=== PATIENT | male | born 1995 ===

== ENCOUNTER 2018-01-29 17:32 | Emergency (ER) | payer SELFPAY ==
[~2018-01-29] VITALS: Ht 165.1 cm; Wt 63.5 kg
[2018-01-29] MEDS ORDERED: Ketorolac 30mg Inj IM ONE (18:00)
[2018-01-29] MEDS ORDERED: IBUPROFEN600 MG ORAL (18:02)
[2018-01-29 18:31] VITALS: BP 108/71
--- NOTE | 2018-01-29 19:28 | Emergency Room Report ---
History of Present Illness General Chief Complaint: Chest Pain Source: Patient Present Illness HPI 22-year-old male presents ED for evaluation. Patient states the last 2 weeks he 's been having chest pain. Sharp, 7/10, midsternal, nonradiating. Worse with twisting and bending. Denies shortness of breath. Denies drug use. Denies smoking. No other aggravating relieving factors. Denies any other associated symptoms Allergies: Coded Allergies: No Known Allergies (Unverified , 01/29/18) Patient History Past Medical History: none Past Surgical History: none Pertinent Family History: none Social History: Denies: smoking, alcohol use, drug use Immunizations: UTD Reviewed Nursing Documentation: PMH: Agreed, PSxH: Agreed Nursing Documentation-PMH Past Medical History: No Stated History Review of Systems All Other Systems: negative except mentioned in HPI Physical Exam Vital Signs Date Time Temp Pulse Resp B/P (MAP) Pulse Ox O2 Delivery O2 Flow Rate FiO2 01/29/18 17:41 98.2 73 18 108/71 99 Room Air 98.2 Sp02 EP Interpretation: reviewed, normal General Appearance: no apparent distress, alert, GCS 15, non-toxic Head: normocephalic, atraumatic Eyes: bilateral eye normal inspection, bilateral eye PERRL ENT: hearing grossly normal, normal pharynx, no angioedema, normal voice Neck: full range of motion, supple/symm/no masses Respiratory: lungs clear, normal breath sounds, speaking full sentences, other - reproducible chest wall pain Cardiovascular #1: regular rate, rhythm, no edema Cardiovascular #2: 2+ carotid (R), 2+ carotid (L), 2+ radial (R), 2+ radial (L) , 2+ dorsalis pedis (R), 2+ dorsalis pedis (L) Gastrointestinal: normal bowel sounds, non tender, soft, non-distended, no guarding, no rebound Rectal: deferred Genitourinary: normal inspection, no CVA tenderness Musculoskeletal: back normal, gait/station normal, normal range of motion, non- tender Neurologic: alert, oriented x3, responsive, motor strength/tone normal, sensory intact, speech normal Psychiatric: judgement/insight normal, memory normal, mood/affect normal, no suicidal/homicidal ideation Reflexes: 3+ bicep (R), 3+ bicep (L), 3+ tricep (R), 3+ tricep (L), 3+ knee (R) , 3+ knee (L) Skin: normal color, no rash, warm/dry, well hydrated Lymphatic: no adenopathy Medical Decision Making Diagnostic Impression: Primary Impression: Chest wall pain ER Course Hospital Course 22 yo M presents to ED c/o chest pain x 2 weeks Differential diagnoses include: Rib fracture, TX/unstable angina, contusion, muscle strain Clinical course Patient placed on stretcher. After initial history, physical exam reveals a male in no acute distress. On exam there is reproducible midsternal pain. Lungs clear EKG normal sinus rhythm no acute ischemic changes interpreted by me Discussed findings with patient. I believe pain is muscular. Pain is reproducible and worsens with twisting and bending. Vital stable. Patient has no cardiac risk factors. No history of substance abuse. given toradol for pain I. I feel this is a highly complex case requiring extensive working including EKG/Rhythm strip, Xray/CT/US, Blood/urine lab work, repeat exams while in ED, and administration of strong opiates/narcotics for pain control, admission to hospital or close patient follow up. Diagnosis - chest wall pain Stable and discharged to home with prescription for Motrin. Instructed to followup with PMD. Return to ED if symptoms recur or worsen EKG Diagnostic Results Rate: normal Rhythm: NSR ST Segments: no acute changes ASA given to the pt in ED: No Rhythm Strip Diag. Results EP Interpretation: yes Rhythm: NSR, no PVC's, no ectopy Last Vital Signs Date Time Temp Pulse Resp B/P (MAP) Pulse Ox O2 Delivery O2 Flow Rate FiO2 01/29/18 18:33 98.2 73 18 108/71 99 Room Air 98.2 Status: improved Disposition: HOME, SELF-CARE Condition: Stable Scripts Ibuprofen* (MOTRIN*) 600 Mg Tablet 600 MG ORAL Q8H Y for For Pain, #30 TAB 0 Refills Prov: JOANNE BRUNER M.D. 01/29/18 Referrals: NOT CHOSEN IPA/,REFERRING (PCP) Patient Instructions: Chest Wall Pain, [id number] JOANNE BRUNER M.D. Jan 29, 2018 19:28
--- NOTE | 2018-01-31 19:57 | Cardiology Report ---
APPROVED REPORT EKG Measurement Heart [id number] Normal sinus rhythm Normal ECG
== END 2018-01-29 18:33 | disposition home or self-care (01) ==
LOC: EMR 17:50
DX: R07.89 Other chest pain (principal)
CPT/HCPCS: 93005; 96372; 99283; J1885